=== PATIENT | male | born 1990 | race Caucasian/White ===

== ENCOUNTER 2017-12-21 03:29 | Emergency (ER) | payer BC, SELFPAY ==
[2017-12-21 03:31] VITALS: BP 151/90; PULSE 85; RESP 20; TEMP 36.7; O2SAT 100
--- NOTE | 2017-12-21 03:56 | W.ED.GENAD ---
Discharge Plan Disposition Patient Disposition: HOME Condition: Stable Discharge Details Chief Complaint: Nk/Back Pain Clinical Impression: Acute exacerbation of chronic low back pain Primary Care Provider: RUDDY BURLESON ED Provider: Diann Murillo Home Meds and New Rx's Prescriptions: Continue ibuprofen 600 MG tablet 600 mg PO QID PRN (Reason: Pain) Qty: 20 RF: 0 tramadol 50 mg Tablet 50 mg PO PRN PRNRF: 0 Discharge Instructions Instructions: Low Back Strain (ED) Additional Instructions: Alternate ice and heat to the affected area several times daily for 20 minutes at a time. Alternate Tylenol and Motrin as needed and directed for pain. Take the Valium as needed and directed for pain not relieved with Tylenol Motrin and to help you with sleep. Call your primary care doctor tomorrow to schedule follow-up appointment for reevaluation. Return immediately to the emergency department any worsening or new concerning symptoms. Stand Alone Forms: Work Release Discharge Data Discharge Physician: Diann Murillo Medical Decision Making 27yo M w/ a h/o chronic lower back pain since injury in 2009 who presents with acute on chronic worsening for the past few days. Denies new injury. Admits to occasional radiation of pain down from left lower back into left lateral thigh down to the knee. No other cauda equina symptoms. No fever or urinary symptoms. Blood pressure mildly elevated otherwise vitals within normal limits. Patient drove himself to the ED and ambulated back to room and appears mildly uncomfortable and stiff while walking. Tenderness to palpation across lower back but no evidence of trauma or infection. No focal deficits. Abdomen soft and nontender. Neurovascularly intact. Patient drove himself to ED. He was requesting a work note. He declines a dose of Toradol, Motrin or Tylenol here. Patient states he is having trouble sleeping. Will send home with 3 doses of Valium to help with muscle spasm and sleep. He is instructed to follow-up with his primary care doctor for reevaluation and return here if worse. HPI General Mode of arrival: ambulatory. Date/Time Provider Initiated Documentation: 12/21/17 03:40. Limitations to Documentation: no limitations. Information obtained by: patient. HPI Narrative: Pt is a 27yo M w/ a h/o chronic back pain since an [facility] who presents with an acute worsening over the past few days. Patient denies any new injury but states from time to time he has an exacerbation of his chronic back pain. States the pain feels like his usual acute exacerbation. States the pain is aching and across his lower back and feels like a spasm. States he has not been able to sleep for the past 2 nights due to the pain. States he occasionally has pain that radiates from his left back down the side of his left leg into the knee. Denies any lower leg pain. Denies fever, abdominal pain, urinary or fecal incontinence, leg pain or weakness, or saddle anesthesia. States he has been taking ibuprofen and Tylenol for pain without relief. States he has tramadol to take at home but does not like to take this because it makes him sleepy at work. States his last dose of Motrin was midnight and his last dose of Tylenol was yesterday afternoon. Patient drove himself to the ED. Past medical history: Chronic back pain Surgical history: None Social history: Occasional alcohol, denies tobacco or drugs Meds: Motrin and tylenol prn, tramadol as needed Allergies: NKDA PCP: Related Data Home Medications Medication Instructions Recorded Confirmed ibuprofen 600 mg PO QID PRN #20 tablet 05/04/17 12/21/17 tramadol 50 mg PO PRN PRN 12/21/17 12/21/17 Previous Rx's Medication Instructions Recorded ibuprofen 600 mg PO QID PRN #20 tablet 05/04/17 Allergies Allergy/AdvReac Type Severity Reaction Status Date / Time No Known Allergies Allergy Unverified 12/21/17 03:34 General Stated Complaint: Nk/Back Pain LICHA: 3 Review of Systems Review of Systems All systems reviewed & are unremarkable except as noted in HPI and below Constitutional Reports as per HPI, Denies chills and Denies fever(s) Eyes Denies blurry vision ENT Denies dizziness, Denies sore throat and Denies throat swelling Cardiovascular Denies chest pain and Denies dyspnea Respiratory Denies dyspnea Gastrointestinal Denies abdominal pain, Denies diarrhea and Denies vomiting Genitourinary Denies hematuria and Denies dysuria Musculoskeletal Reports back pain and Denies numbness Integumentary/Breasts Denies lesions and Denies rash Neurologic Denies dizziness and Denies numbness Allergic/Immunologic Denies throat swelling PFSH Social History Smoking/Tobacco Use Status: Never Exam Const General: cooperative, healthy appearing and no acute distress HENMT Head: normal to inspection Mouth: oral mucosae normal Eyes General: appearance normal, both eyes and all related structures Neck Neck: normal visual inspection Resp Effort & Inspection: normal respiratory effort and able to speak in complete sentences Auscultation: clear to auscultation bilaterally Cardio Rate: regular rate Rhythm: regular rhythm GI Inspection: normal to inspection Palpation: soft, no masses, not rigid and nontender Auscultation: normal bowel sounds Male General Exam: Yes normal external exam Scrotum: scrotum normal Back/Spine/Pelvis Back: No erythema and No warmth Thoracic/Lumbar Spine: paraspinal tenderness (Bilateral lumbar) and lumbar spinal tenderness Pelvis: no buttock tenderness and no buttock swelling Sacrum: no ecchymosis, no erythema and no swelling Skin General skin exam: no rashes or lesions noted Neuro General: alert, awake and oriented x3 Motor: muscle tone normal throughout and strength 5/5 throughout DTR's: Rt Patellar: 1+, Lt Patellar: 1+, Rt Ankle: 1+ and Lt Ankle: 1+ Plantar Reflexes: Equivocal: bilateral Other: Straight leg raise negative bilaterally Extrem General: normal to inspection and full ROM Left lower extremity: normal to inspection and full ROM Other: Bilateral DP/PT pulses intact. Psych Appearance: grossly normal Affect: normal affect Course Vital Signs Temperature 98.1 F 12/21/17 03:31 Pulse 85 12/21/17 03:31 Respiratory Rate 20 12/21/17 03:31 Blood Pressure 151/90 H 12/21/17 03:31 Pulse Oximetry 100 12/21/17 03:31 Temperature 98.1 F 12/21/17 03:31 Temperature Source Temporal Artery Scan 12/21/17 03:31 Pulse 85 12/21/17 03:31 Respiratory Rate 20 12/21/17 03:31 Respiratory Effort Non-Labored 12/21/17 03:31 Blood Pressure 151/90 H 12/21/17 03:31 Pulse Oximetry 100 12/21/17 03:31 Oxygen Delivery Method Room Air 12/21/17 03:31 Oxygen Flow Rate 0 12/21/17 03:31 Pain Level 5 12/21/17 03:35
== END 2017-12-21 04:00 | disposition home or self-care (01) ==
PROVIDERS: Emergency Provider Physician Assistant; PCP Internal Medicine
DX: M54.5 Low back pain (principal); G89.29 Other chronic pain
CPT/HCPCS: 99283

== ENCOUNTER 2018-03-03 21:07 | Emergency (ER) | payer BC, SELFPAY ==
[2018-03-03 21:12] VITALS: BP 129/86; PULSE 74; RESP 16; TEMP 36.5; O2SAT 98
--- NOTE | 2018-03-03 21:18 | W.ED.GENAD ---
Discharge Plan Disposition Patient Disposition: HOME Condition: Improving Discharge Details Chief Complaint: Nk/Back Pain Clinical Impression: Back strain Primary Care Provider: Que Martinez ED Provider: Bryson Bolden Home Meds and New Rx's Prescriptions: Continued ibuprofen 600 MG tablet 600 mg PO QID PRN (Reason: Pain) Qty: 20 RF: 0 tramadol 50 mg Tablet 50 mg PO PRN PRNRF: 0 Discharge Instructions Instructions: Lower Back Exercises (ED) Additional Instructions: Continue your stretching, hydration, prescribed medications. Return for any acute concerns Stand Alone Forms: Work Release Medical Decision Making 27-year-old healthy male with mild lumbar back strain that he is managed with NSAIDs at home. He had to call out of work and requests a work note. He has no neurologic dysfunction his exam is unremarkable as are his vital signs. Consistent with lumbar strain and patient appropriate for discharge home. HPI General Mode of arrival: ambulatory. Date/Time Provider Initiated Documentation: 03/03/18 21:11. Limitations to Documentation: no limitations. Information obtained by: patient. History of Present Illness 27 year old M presents to the emergency department with the chief complaint of Back strain and need for calling out, described as moderate, Quality is described as aching, and is localized to the back. Patient reports no radiation. Patient started experiencing this hour(s) and it has been constant. Rest improves symptom(s), Movement worsens symptoms . Patient notes no other symptoms.. Patient did receive the following treatments prior to arrival, NSAID Related Data Home Medications Medication Instructions Recorded Confirmed ibuprofen 600 mg PO QID PRN #20 tablet 05/04/17 03/03/18 tramadol 50 mg PO PRN PRN 12/21/17 03/03/18 Previous Rx's Medication Instructions Recorded ibuprofen 600 mg PO QID PRN #20 tablet 05/04/17 Allergies Allergy/AdvReac Type Severity Reaction Status Date / Time No Known Allergies Allergy Unverified 12/21/17 03:34 General Stated Complaint: Nk/Back Pain LICHA: 3 Review of Systems Review of Systems 6 systems reviewed and otherwise negative [facility] Social History Smoking/Tobacco Use Status: Never Exam Narrative Exam Narrative: GEN: awake, alert, oriented 3. Pleasant, well groomed, interactive. HEAD: Normocephalic, atraumatic ENT: Mucous membranes moist, oropharynx unremarkable, External ear exam unremarkable EYES: PERRL, EOMI NECK: Full ROM, no FAIZAN, no menigismus CHEST/RESP: Nontender, clear to auscultation bilateral, no wheeze/rhonchi/rales CARDIOVASCULAR: RRR, no murmur, rub danika. 2+ Rad pulse bilateral Back: Bilateral paraspinous muscular spasm and tenderness in the thoracolumbar region. No midline tenderness, step-off, deformity EXT: Full ROM, no edema, no rash Neuro: Grossly normal neurologic exam, conversant, interactive. Psych: Speech fluent, thoughts congruent, affect normal Course Vital Signs Temperature 36.5 C 03/03/18 21:12 Pulse 74 03/03/18 21:12 Respiratory Rate 16 03/03/18 21:12 Blood Pressure 129/86 03/03/18 21:12 Pulse Oximetry 98 03/03/18 21:12 Temperature 36.5 C 03/03/18 21:12 Temperature Source Tympanic 03/03/18 21:12 Pulse 74 03/03/18 21:12 Respiratory Rate 16 03/03/18 21:12 Respiratory Effort 03/03/18 21:12 Blood Pressure 129/86 03/03/18 21:12 Blood Pressure Position Sitting 03/03/18 21:12 Pulse Oximetry 98 03/03/18 21:12 Oxygen Delivery Method Room Air 03/03/18 21:12 Oxygen Flow Rate 0 03/03/18 21:12 Pain Level 4 03/03/18 21:12
[2018-03-03 22:14] VITALS: BP 189/94
== END 2018-03-03 21:25 | disposition home or self-care (01) ==
LOC: ER 21:27
PROVIDERS: Emergency Provider Emergency Medicine; PCP Internal Medicine
DX: S39.012A Strain of muscle, fascia and tendon of lower back, initial encounter (principal); X50.9XXA Other and unspecified overexertion or strenuous movements or postures, initial encounter
CPT/HCPCS: 99282

== ENCOUNTER 2018-03-18 07:13 | Emergency (ER) | payer BC, SELFPAY ==
[2018-03-18 07:20] VITALS: BP 124/94; PULSE 86; RESP 16; TEMP 37; O2SAT 97
[2018-03-18 07:31] LABS: Bilirubin Negative (Negative); Blood Negative (Negative); Clarity Clear; Glucose Negative (Negative); Ketones Negative (Negative); Leukocyte Esterase Negative (Negative); Nitrite Negative (Negative); Urobilinogen 0.2 EU/dL (Up TO 0.2); pH 6.5 (5-8)
--- NOTE | 2018-03-18 07:38 | W.ED.GENAD ---
Discharge Plan Disposition Patient Disposition: HOME Condition: Stable Discharge Details Chief Complaint: Urinary Clinical Impression: Pain in testicle, Varicocele Primary Care Provider: Que Martinez ED Provider: Augusta Nolasco Home Meds and New Rx's Prescriptions: Continued tramadol 50 mg Tablet 50 mg PO PRN PRNRF: 0 betamethasone valerate 0.1 % Cream 1 applic TOPICAL DAILY PRNRF: 0 ibuprofen [Ibuprofen IB] 200 mg Tablet 600 mg PO QID PRNRF: 0 Discharge Instructions Additional Instructions: Please return immediately to the emergency department if you develop any new or worsening symptoms or if you become otherwise concerned. It is extremely important that you make an appointment to be seen by your primary care doctor as soon as possible and follow-up for this visit. Referrals: Que Martinez [Primary Care Provider] - Discharge Data Discharge Date/Time-TO BE ENTERED AT DEPARTURE: 03/18/18 10:11 Medical Decision Making David Ca is a 28-year-old man with history of lower back pain over the past 10 years presenting to the emergency department with testicular pain for the past 4 days. On exam patient is very well and nontoxic appearing. Tenderness of the left testicle was otherwise normal exam of the genitals, benign abdominal exam. Unclear etiology of the pain, low suspicion for orchitis, trauma, or other acute emergent life-threatening testicular process but will obtain ultrasound and UA for rule out. Exam/history is not consistent with acute aortic process, kidney stone, acute emergent intra-abdominal etiology, sepsis. Her sound shows left-sided varicocele otherwise negative per radiology. UA negative. Pain likely secondary to varicocele. I had a lengthy discussion with the patient regarding return to emergency department precautions and importance of outpatient follow-up with his primary care doctor. Patient verbalizes understanding of the plan and is amenable. Medical Records Medical records reviewed: Yes I reviewed the patient's medical records. Lab Data Lab results reviewed: Yes I reviewed the patient's lab results. Laboratory Tests Range/Units 03/18/18 07:25 Urine Color (Yellow) Yellow Urine Clarity Clear Urine pH (5-8) 6.5 Ur Specific [place] (1.005-1.025) 1.020 Urine Protein (Negative) mg/dL Negative Urine Ketones (Negative) mg/dL Negative Urine Blood (Negative) Negative Urine Nitrite (Negative) Negative Urine Bilirubin (Negative) Negative Urine Urobilinogen (Up TO 0.2) EU/dL 0.2 Ur Leukocyte Esterase (Negative) Negative Urine Glucose (Negative) mg/dL Negative HPI General Mode of arrival: ambulatory. Date/Time Provider Initiated Documentation: 03/18/18 07:38. Limitations to Documentation: no limitations. Information obtained by: patient, RN notes reviewed and old records reviewed. HPI Narrative: David Ca 28-year-old man with history of recurrent low back pain over the past 10 years presenting to the emergency department with testicular pain. Patient reports that 4 days ago he developed his typical left-sided low back pain with radiation into the left leg. He takes tramadol for this at home, which he did and has had relief of the past few days. He reports that with onset of his low back pain, he also noticed that pain is radiating into the left testicle. This has happened occasionally in the past, but pain has only lasted briefly. Patient reports that with this instance his testicular pain has persisted over the past few days, despite resolution of his back pain. He has not had rash, scrotal edema, trauma to the scrotum or back, any other pain, dysuria, penile discharge, vomiting, diarrhea, or any other symptoms. Has been eating and drinking as usual. Patient is monogamous with his . Related Data Home Medications Medication Instructions Recorded Confirmed tramadol 50 mg PO PRN PRN 12/21/17 03/18/18 betamethasone valerate 1 applic TOPICAL DAILY PRN 03/18/18 03/18/18 ibuprofen [Ibuprofen IB] 600 mg PO QID PRN 03/18/18 03/18/18 Allergies Allergy/AdvReac Type Severity Reaction Status Date / Time No Known Allergies Allergy Unverified 03/18/18 07:26 General Stated Complaint: Urinary LICHA: 3 Review of Systems Review of Systems Constitutional: denies fevers Eyes: denies eye pain ENT: denies facial pain, dental pain, sore throat Cardiovascular: denies chest pain, edema Respiratory: denies SOB, cough GI: denies abdominal pain, vomiting, diarrhea : denies flank pain, penile discharge, dysuria, reports left testicular pain MSK: denies back pain, neck pain, arthralgias, myalgias Skin: denies rash Neuro: denies headaches, numbness, weakness [facility] Social History Smoking and Tabacco status: Never Exam Narrative Exam Narrative: Constitutional: well and [id number], pleasant, conversing normally HENT: head atraumatic, normocephalic normal inspection, mucous membranes moist Eyes: conjunctiva normal, sclera normal, pupils 3mm b/l Neck: no stridor, normal ROM, trachea midline Chest: normal inspection Resp: normal work of breathing, LCTAB Cardio: normal rate, normal rhythm, no murmur appreciated GI: abdomen soft, non-tender, non-distended : No inguinal lymphadenopathy bilaterally, no rash or skin lesion over the genitals, normal penis, no scrotal edema, mild tenderness of the left testicle without mass or firmness, mild left varicocele Back: normal inspection, no rash, nontender to palpation Skin: warm, dry, normal color, no rash Neuro: alert, not altered, grossly non-focal, normal tone Ext: no edema Psych: normal mood, normal affect, normal behavior Course Vital Signs Temperature 37 C 03/18/18 07:20 Pulse 86 03/18/18 07:20 Respiratory Rate 16 03/18/18 07:20 Blood Pressure 124/94 H 03/18/18 07:20 Pulse Oximetry 97 03/18/18 07:20 Temperature 37 C 03/18/18 07:20 Temperature Source Temporal Artery Scan 03/18/18 07:20 Pulse 86 03/18/18 07:20 Respiratory Rate 16 03/18/18 07:20 Respiratory Effort Non-Labored 03/18/18 07:24 Blood Pressure 124/94 H 03/18/18 07:20 Blood Pressure Position Sitting 03/18/18 07:20 Pulse Oximetry 97 03/18/18 07:20 Oxygen Delivery Method Room Air 03/18/18 07:20 Oxygen Flow Rate 0 03/18/18 07:20 Pain Level 3 03/18/18 07:31 Lab/Test Results Lab/Test Results: Laboratory Tests Range/Units 03/18/18 07:25 Urine Color (Yellow) Yellow Urine Clarity Clear Urine pH (5-8) 6.5 Ur Specific [place] (1.005-1.025) 1.020 Urine Protein (Negative) mg/dL Negative Urine Ketones (Negative) mg/dL Negative Urine Blood (Negative) Negative Urine Nitrite (Negative) Negative Urine Bilirubin (Negative) Negative Urine Urobilinogen (Up TO 0.2) EU/dL 0.2 Ur Leukocyte Esterase (Negative) Negative Urine Glucose (Negative) mg/dL Negative
--- NOTE | 2018-03-18 07:41 | ED.GENADUL_ITS ---
Discharge Plan Disposition Patient Disposition: HOME Condition: Stable Discharge Details Chief Complaint: Urinary Clinical Impression: Pain in testicle, Varicocele Primary Care Provider: Que Martinez ED Provider: Augusta Nolasco Home Meds and New Rx's Prescriptions: Continued tramadol 50 mg Tablet 50 mg PO PRN PRNRF: 0 betamethasone valerate 0.1 % Cream 1 applic TOPICAL DAILY PRNRF: 0 ibuprofen [Ibuprofen IB] 200 mg Tablet 600 mg PO QID PRNRF: 0 Discharge Instructions Additional Instructions: Please return immediately to the emergency department if you develop any new or worsening symptoms or if you become otherwise concerned. It is extremely important that you make an appointment to be seen by your primary care doctor as soon as possible and follow-up for this visit. Referrals: Que Martinez [Primary Care Provider] - Discharge Data Discharge Date/Time-TO BE ENTERED AT DEPARTURE: 03/18/18 10:11 Medical Decision Making David Ca is a 28-year-old man with history of lower back pain over the past 10 years presenting to the emergency department with testicular pain for the past 4 days. On exam patient is very well and nontoxic appearing. Tenderness of the left testicle was otherwise normal exam of the genitals, benign abdominal exam. Unclear etiology of the pain, low suspicion for orchitis, trauma, or other acute emergent life-threatening testicular process but will obtain ultras ound and UA for rule out. Exam/history is not consistent with acute aortic process, kidney stone, acute emergent intra-abdominal etiology, sepsis. Her sound shows left-sided varicocele otherwise negative per radiology. UA negative. Pain likely secondary to varicocele. I had a lengthy discussion with the patient regarding return to emergency department precautions and importance of outpatient follow-up with his primary care doctor. Patient verbalizes understanding of the plan and is amenable. Medical Records Medical records reviewed: Yes I reviewed the patient's medical records. Lab Data Lab results reviewed: Yes I reviewed the patient's lab results. Laboratory Tests Range/Units 03/18/18 07:25 Urine Color (Yellow) Yellow Urine Clarity Clear Urine pH (5-8) 6.5 Ur Specific [place] (1.005-1.025) 1.020 Urine Protein (Negative) mg/dL Negative Urine Ketones (Negative) mg/dL Negative Urine Blood (Negative) Negative Urine Nitrite (Negative) Negative Urine Bilirubin (Negative) Negative Urine Urobilinogen (Up TO 0.2) EU/dL 0.2 Ur Leukocyte Esterase (Negative) Negative Urine Glucose (Negative) mg/dL Negative HPI General Mode of arrival: ambulatory . Date/Time Provider Initiated Documentation: 03/18/18 07:38 . Limitations to Documentation: no limitations . Information obtained by: patient, RN notes reviewed and old records reviewed . HPI Narrative: David Ca 28-year-old man with history of recurrent low back pain over the past 10 years presenting to the emergency department with testicular pain. Patient reports that 4 days ago he developed his typical left- sided low back pain with radiation into the left leg. He takes tramadol for this at home, which he did and has had relief of the past few days. He reports that with onset of his low back pain, he also noticed that pain is radiating into the left testicle. This has happened occasionally in the past, but pain has only lasted briefly. Patient reports that with this instance his testicular pain has persisted over the past few days, despite resolution of his back pain. He has not had rash, scrotal edema, trauma to the scrotum or back, any other pain, dysuria, penile discharge, vomiting, diarrhea, or any other symptoms. Has been eating and drinking as usual. Patient is monogamous with his . Re lated Data Home Medications Medication Instructions Recorded Confirmed tramadol 50 mg PO PRN PRN 12/21/17 03/18/18 betamethasone valerate 1 applic TOPICAL DAILY PRN 03/18/18 03/18/18 ibuprofen [Ibuprofen IB] 600 mg PO QID PRN 03/18/18 03/18/18 Allergies Allergy/AdvReac Type Severity Reaction Status Date / Time No Known Allergies Allergy Unverified 03/18/18 07:26 General Stated Complaint: Urinary LICHA: 3 Review of Systems Review of Systems Constitutional: denies fevers Eyes: denies eye pain ENT: denies facial pain, dental pain, sore throat Cardiovascular: denies chest pain, edema Respiratory: denies SOB, cough GI: denies abdominal pain, vomiting, diarrhea : denies flank pain, penile discharge, dysuria, reports left testicular pain MSK: denies back pain, neck pain, arthralgias, myalgias Skin: denies rash Neuro: denies headaches, numbness, weakness [facility] Social History Smoking and Tabacco status: Never Exam Narrative Exam Narrative: Constitutional: well and [id number], pleasant, conversing normally HENT: head atraumatic, normocephalic normal inspection, mucous membranes moist Eyes: conjunctiva normal, sclera normal, pupils 3mm b/l Neck: no stridor, normal ROM, trachea midline Chest: normal inspection Resp: normal work of breathing, LCTAB Cardio: normal rate, normal rhythm, no murmur appreciated GI: abdomen soft, non-tender, non-distended : No inguinal lymphadenopathy bilaterally, no rash or skin lesion over the genitals, normal penis, no scrotal edema, mild tenderness of the left testicle without mass or firmness, mild left varicocele Back: normal inspection, no rash, nontender to palpation Skin: warm, dry, normal color, no rash Neuro: alert, not altered, grossly non-focal, normal tone Ext: no edema Psych: normal mood, normal affect, normal behavior Course Vital Signs Temperature 37 C 03/18/18 07:20 Pulse 86 03/18/18 07:20 Respiratory Rate 16 03/18/18 07:20 Blood Pressure 124/94 H 03/18/18 07:20 Pulse Oximetry 97 03/18/18 07:20 Temperature 37 C 03/18/18 07:20 Temperature Source Temporal Artery Scan 03/18/18 07:20 Pulse 86 03/18/18 07:20 Respiratory Rate 16 03/18/18 07:20 Respiratory Effort Non-Labored 03/18/18 07:24 Blood Pressure 124/94 H 03/18/18 07:20 Blood Pressure Position Sitting 03/18/18 07:20 Pulse Oximetry 97 03/18/18 07:20 Oxygen Delivery Method Room Air 03/18/18 07:20 Oxygen Flow Rate 0 03/18/18 07:20 Pain Level 3 03/18/18 07:31 Lab/Test Results Lab/Test Results: Laboratory Tests Range/Units 03/18/18 07:25 Urine Color (Yellow) Yellow Urine Clarity Clear Urine pH (5-8) 6.5 Ur Specific [place] (1.005-1.025) 1.020 Urine Protein (Negative) mg/dL Negative Urine Ketones (Negative) mg/dL Negative Urine Blood (Negative) Negative Urine Nitrite (Negative) Negative Urine Bilirubin (Negative) Negative Urine Urobilinogen (Up TO 0.2) EU/dL 0.2 Ur Leukocyte Esterase (Negative) Negative Urine Glucose (Negative) mg/dL Negative
--- NOTE | 2018-03-18 08:51 | DI.US_ITS ---
SYMPTOM/DIAGNOSIS: LEFT TESTICULAR PAIN, NO TRAUMA TESTICULAR ULTRASOUND: The testicles are normal in size and show normal blood flow. No mass is identified. There is no evidence of torsion. The epididymides are unremarkable with the exception of a 2 mm cyst in the head of the right epididymis. A varicocele is seen at the inferior and lateral aspect of the left testicle with increasing blood flow with jhon javier. IMPRESSION: Left varicocele.
== END 2018-03-18 10:11 | disposition home or self-care (01) ==
PROVIDERS: Emergency Provider Student in an Organized Health Care Education/Training Program; PCP Internal Medicine
DX: I86.1 Scrotal varices (principal)
CPT/HCPCS: 99284; 76870; 81003

== ENCOUNTER 2019-02-19 20:43 | Emergency (ER) | payer BC, SELFPAY ==
[2019-02-19 20:51] VITALS: BP 129/91; PULSE 81; RESP 16; TEMP 36.5; O2SAT 100
[2019-02-19] MEDS: Normal Saline 1,000 ML 1000 ML IV (21:10)
[2019-02-19] MEDS: Acetaminophen 500 MG TAB 1000 MG PO (21:10)
[2019-02-19] MEDS: methylPREDNISolone SUCC 125 MG VIAL IVP (21:15)
--- NOTE | 2019-02-19 21:17 | W.ED.GENAD ---
Discharge Plan Disposition Patient Disposition: HOME Condition: Good Discharge Details Chief Complaint: Headache Clinical Impression: Headache, migraine Primary Care Provider: Que Martinez ED Provider: Atul Alexis Home Meds and New Rx's Prescriptions: No Action acetaminophen [Tylenol Extra Strength] 500 mg Tablet 500 mg PO QID PRNRF: 0 tramadol 50 mg Tablet 50 mg PO PRN PRNRF: 0 ibuprofen [Ibuprofen IB] 200 mg Tablet 400 mg PO QID PRNRF: 0 Discharge Instructions Instructions: Acute Headache (ED) Additional Instructions: At this time your symptoms appear consistent with a migraine headache. Please drink plenty of fluids, take Tylenol or Motrin as needed for pain. Avoid meat with preservatives. Be cautious with your caffeine intake. If you notice any worsening of your symptoms, or any new symptoms such as vomiting, diarrhea, fever, chills, shortness of breath, chest pain, numbness, weakness, or fainting , please return immediately to the emergency department for reevaluation. Please follow up with your primary care provider as soon as possible for reassessment and reevaluation. As always, it was a pleasure participating in your medical care today. Stand Alone Forms: Work Release Referrals: Que Martinez [Primary Care Provider] - Medical Decision Making This is a pleasant 28-year-old male past medical history of chronic back pain, and migraine headaches who presents today for headache. Is been present for the last 5 days. Went to an urgent care where he had treatment with Toradol and Phenergan which slightly improved his symptoms but did not resolve them. He has no red flags for his clinical history. Physical exam finding demonstrates normal neurologic exam, no focal neurologic deficits, no clinical evidence of meningitis. Signs and symptoms appear consistent with chronic migraine. However the patient has not had any intracranial imaging before. We will get a CT scan, give migraine cocktail and reassess. 10:[address] scan results have returned negative for any acute process. Signs and symptoms continue to appear consistent with migraine. Upon reassessment he has near complete resolution of his symptoms and is requesting to go home. Repeat neurologic exam continues to demonstrate no focal neurologic deficits or meningeal signs. This time I feel that his symptoms are clinically consistent with migraine he is stable for discharge with close PCP follow-up. Discussed red flags which to return. I have extensively reviewed the treatment plan and discharge instructions with the patient and their family. I have addressed all patient concerns at this time. The patient and family was made aware of what symptoms to monitor for that would warrant a return to the emergency department. Discussed the plan with the patient and family, they demonstrate verbal understanding and agreement with our assessment and plan at this time. FINDINGS: Brain: Normal. No hemorrhage. Unremarkable white matter. No mass effect. Ventricles: Normal. No ventriculomegaly. Bones/joints: Unremarkable. No acute fracture. Sinuses: Multiple opacified ethmoid air cells. Sub cm cyst or polyp in left sphenoid sinus. No fluid levels. Mastoid air cells: Visualized mastoid air cells are well aerated. Soft tissues: Unremarkable. IMPRESSION: 1. No acute intracranial abnormality. 2. Sinusitis. Thank you for allowing us to participate in the care of your patient. Dictated and Authenticated by: Khris Leiva DO 02/19/2019 9:53 PM Eastern Time ([place] & [place]) HPI General Date/Time Provider Initiated Documentation: 02/19/19 20:44. HPI Narrative: This is a very pleasant 28-year-old male with a past medical history of chronic back pain, depression, who presents today for evaluation of headache. Patient states that he has a family history of migraines, and has had migraine headaches in the past. This 1 started 5 days ago was present on the left-hand side of his jew, he describes it as a vice-like sensation. Went to an urgent care last 48 hours where he received Phenergan and Toradol, which had mild improvement of his symptoms but did not resolve it. Since then the symptoms have come back. It is now throughout his entire head. He denies any neck pain or neck stiffness, he denies fever chills. The patient denies any headache red flags of worst headache of life, thunderclap headache, neck pain, fever, chills, concerning family history of polycystic kidney disease, Marfan syndrome, Miguelito-Danlos syndrome, abdominal aortic aneurysm, aortic dissection, or intracranial aneurysm. He states that it is consistent with prior headaches. He has not had cranial imaging in the past. Symptoms are made worse with noise and smell. He does have minimal subjective left hand tingling, which she is uncertain if it is related to the headache. He denies any other complaints at this time. No trauma, no IV or illicit drug use, or other complaints. Related Data Home Medications Medication Instructions Recorded Confirmed tramadol 50 mg PO PRN PRN 12/21/17 02/19/19 ibuprofen [Ibuprofen IB] 400 mg PO QID PRN 03/18/18 02/19/19 acetaminophen [Tylenol Extra 500 mg PO QID PRN 02/19/19 02/19/19 Strength] Allergies Allergy/AdvReac Type Severity Reaction Status Date / Time No Known Allergies Allergy Unverified 02/19/19 20:58 General Stated Complaint: Headache LICHA: 3 Review of Systems All systems reviewed & are unremarkable except as noted in HPI and below PFSH Social History Smoking/Tobacco Use Status: Never Drug use: Never Do you feel safe in your relationship?: Yes Exam Narrative Exam Narrative: 1.Const: Well-nourished, Well-developed, appearing stated age 2.Eyes: PERRL, no conjunctival injection, and symmetrical lids. 3.ENT: Atraumatic external nose and ears. Moist MM. Neck: Symmetric, trachea midline, No thyromegaly. Patient demonstrates good movement of cervical neck. There is no nuchal rigidity, no nuchal tenderness. Patient is able to flex the neck without any difficulty or significant pain. Negative Kernig's and Brudzinski sign. 4.CVS: +S1/S2, No murmurs or gallops. Peripheral pulses 2+ and equal in all extremities. Brisk capillary refill in all extremities. 5.RESP: Unlabored respiratory effort. Clear to auscultation bilaterally. No wheezes rales or rhonchi 6.GI: Soft, Nontender/Nondistended, No hepatosplenomegaly. No guarding or rebound. 7.MSK: Normocephalic/Atraumatic, Extremities w/o deformity or ttp No cyanosis or clubbing, Normal movement of all extremities 8.Skin: Warm, Dry. No rashes or lesions. 9.Neuro: project manager entertainment and media II-XII grossly intact. Sensation grossly intact, no focal neurologic deficits. All 6 cardinal planes of vision are fully intact. No evidence of rotatory or vertical nystagmus. The patient demonstrated a normal [id number], good dexterity. There was no evidence of dysdiadochokinesia. Patient was able to ambulate without difficulty. There was no wide-based gait. Romberg testing was normal. Uzrx-su-[id number] testing was normal. Sensation was intact bilaterally as well as muscle strength bilaterally for all extremities. Patient was able to verbalize butter cup with no slurring, or miss pronunciation. Cerebellar function testing is normal. The patient demonstrates a normal hints exam with no findings concerning for a central event. No vertical nystagmus. The head impulse test is negative for any significant central abnormality. Normal test of skew. No suggestion of a central cerebellar event. 10.Psych: (AAO) x3. Appropriate mood and affect Course Vital Signs Vital signs: Vital Signs Temperature 36.5 C 02/19/19 20:51 Pulse 81 02/19/19 20:51 Respiratory Rate 16 02/19/19 20:51 Blood Pressure 129/91 H 02/19/19 20:51 Pulse Oximetry 100 02/19/19 20:51 Temperature 36.5 C 02/19/19 20:51 Temperature Source Skin 02/19/19 20:51 Pulse 81 02/19/19 20:51 Respiratory Rate 16 02/19/19 20:51 Respiratory Effort 02/19/19 20:57 Blood Pressure 129/91 H 02/19/19 20:51 Pulse Oximetry 100 02/19/19 20:51 Oxygen Delivery Method Room Air 02/19/19 20:51 Oxygen Flow Rate 0 02/19/19 20:51 Pain Level 7 02/19/19 20:51
[2019-02-19] MEDS: Ketorolac 30 MG/ML VIAL IVP (21:18)
[2019-02-19] MEDS: diphenhydrAMINE 50 MG/ML VIAL 25 MG IVP (21:20)
[2019-02-19] MEDS: Prochlorperazine 10 MG/2 ML VIAL IVP (21:22)
[2019-02-19] MEDS: Normal Saline 50 ML (21:22)
--- NOTE | 2019-02-19 21:45 | DI.CT_ITS ---
EXAM: CT HEAD WO CLINICAL HISTORY: headache, r/o mass TECHNIQUE: Noncontrast cranial CT was performed. COMPARISON: No exams were available for comparison FINDINGS: There is mucoperiosteal thickening of a few ethmoid air cells which may represent a mild chronic si nusitis. Otherwise the paranasal sinuses and mastoid air cells are clear. Orbital and temporal bone structures appear intact. No abnormality of the ventricular system. No evidence of intracranial he morrhage, midline shift, or mass effect. IMPRESSION: No evidence of acute intracranial abnormality. Mild ethmoid sinusitis.
--- NOTE | 2019-02-19 21:53 | DI.VRAD_ITS ---
PROCEDURE INFORMATION: Exam: CT Head Without Contrast Exam date and time: 02/19/2019 9:40 PM Age: 28 years old Clinical indication: Pain; Headache not specified; Patient HX: Headache, R/O tumor; Additional info: Headache x6 days, recently seen at an urgent care facility for treatment, improved for a day and then the headache came back. TECHNIQUE: Imaging protocol: Computed tomography of the head without contrast. Radiation optimization: All CT scans at this facility use at least one of these dose optimization techniques: automated exposure control; mA and/or kV adjustment per patient size (includes targeted exams where dose is matched to clinical indication); or iterative reconstruction. COMPARISON: No relevant prior studies available. FINDINGS: Brain: Normal. No hemorrhage. Unremarkable white matter. No mass effect. Ventricles: Normal. No ventriculomegaly. Bones/joints: Unremarkable. No acute fracture. Sinuses: Multiple opacified ethmoid air cells. Sub cm cyst or polyp in left sphenoid sinus. No fluid levels. Mastoid air cells: Visualized mastoid air cells are well aerated. Soft tissues: Unremarkable. IMPRESSION: 1. No acute intracranial abnormality. 2. Sinusitis. Dictated and Authenticated by: Khris Leiva MD. Ordering:HANY Pollard MD
[2019-02-19 22:21] VITALS: BP 126/89; PULSE 74; RESP 16; O2SAT 98
== END 2019-02-19 22:20 | disposition home or self-care (01) ==
PROVIDERS: Emergency Provider Student in an Organized Health Care Education/Training Program; PCP Internal Medicine
DX: G43.909 Migraine, unspecified, not intractable, without status migrainosus (principal)
CPT/HCPCS: 96361; 96374; 96375; 99284; 70450; J0780; J1200; J1885; J2930

== ENCOUNTER 2020-02-08 21:02 | Emergency (ER) | payer OTHER, SELFPAY ==
--- NOTE | 2020-02-08 21:03 | ED.GENADUL_ITS ---
Discharge Plan Disposition Patient Disposition: HOME Condition: Stable Discharge Details Clinical Impression: Pain, rectum, Abdominal pain, Syncope Primary Care Provider: Que Martinez ED Provider: Nupur Cardenas Home Meds and New Rx's Prescriptions: New pramoxine [Proctofoam] 1 % foam 1 applic ND QID PRNQty: 15 RF: 0 Continued acetaminophen [Tylenol Extra Strength] 500 mg Tablet 500 mg PO QID PRNRF: 0 ibuprofen [Ibuprofen IB] 200 mg Tablet 400 mg PO QID PRNRF: 0 Discharge Instructions Instructions: Syncope (ED), Abdominal Pain (ED), Rectal Pain (ED) Additional Instructions: Your labs and imaging are reassuring today. I do not find any life-threatening source of your syncope at this point. This may have been associated with your discomfort. You may use the Tucks pad as needed to help with rectal discomfort. Please follow directions on packaging. Please follow-up with your primary care in 1 week for reevaluation. If you develop chest pain, shortness of breath, increased pain, fever/chills, inability to hydrate or other new/worsening symptom please seek care urgently once again. Referrals: Que Martinez [Primary Care Provider] - Medical Decision Making Patient is a pleasant 29-year-old male presenting today with complaint of abdominal pain and syncope. Symptoms discomfort in his abdomen for approximately 1 week that is worsening over the past several days. Worsened with food. Reports that he had [employer] for lunch motion to exacerbate his discomfort. States he did vomit x2 today. No hematemesis. Reports hard stools today which did pass some rectal discomfort. History of hemorrhoids. No blood in the stool. States that he has been able to pass flatus and stool normally otherwise. Reports that he has some chronic discomfort in the left testicle which is also been worse recently and finds worse with straining. History of varicocele. He denies any previous abdominal surgeries. He states that he has had abdominal discomfort like this historically but typically short-lived. Denies any back pain. No chest pain or shortness of breath. Denies fevers or chills. States that today he had 2 episodes of syncope when at rest. The initial was without any precipitating symptoms. Second included tunnel vision and lightheadedness. Both of these occurred while feeding. Not associated with straining or exertion. He states that he immediately returned to baseline and felt like he had take a nap after each episode. On exam, patient appears nontoxic. His vital signs within normal limits. Normal neurological exam. Abdomen is soft and diffusely tender with no peritoneal findings. Varicocele noted in the left testicle. Patient reports that it feels the same as it has historically. Normal cremasteric reflex. No appreciable testicular swelling, discoloration. He reports that left side is area of discomfort, the is not high riding. Rectal exam is significant for some external rectal discomfort and pain with insertion of the finger. Prostate is nontender. No grossly bloody stool. Unclear what is the driving source today. He has a multitude of complaints many of these are extremely vague. As his abdominal pain has progressed over the p ast week he is now denies any vomiting, I do feel that imaging would be appropriate. Plan for ECG and troponin to evaluate for syncope. Patient does report that he has had multiple episodes of syncope historically but typically associate with severe pain. This may have been drug riding factor today although he denies having severe pain at the onset of symptoms. Does not see any evidence to suggest testicular torsion. His exam is not consistent with prostatitis. Patient is a monogamous relationship. His just gave to child 5 weeks ago. ECG was reviewed by Dr. Alexis. No evidence to suggest openings, posttussive excitation, prolonged T, Brugada. Patient does not have a block. No evidence to suggest a STEMI. His [place] syncope rule is low risk. PERC is negative. Hypoxia evidence to suggest dissection, surgical abdomen. Consider potential electrolyte abnormality, mesenteric adenopathy, colitis versus other. Labs are reviewed. No leukocytosis. Stable H&H. CMP is without abnormality. Troponin is less than 0.05. Lipase within normal limits. TSH within normal limits. FINDINGS: Liver: Hepatic steatosis. Gallbladder and bile ducts: Normal. No calcified stones. No ductal dilation. Pancreas: Normal. No ductal dilation. Spleen: Normal. No splenomegaly. Adrenal glands: Normal. No mass. Kidneys and ureters: Simple left renal cyst, no further follow-up required. No hydronephrosis. Stomach and bowel: Unremarkable. No obstruction. No mucosal thickening. Appendix: No evidence of appendicitis. Intraperitoneal space: Unremarkable. No free air. No significant fluid collection. Vasculature: Unremarkable. No abdominal aortic aneurysm. Lymph nodes: Unremarkable. No enlarged lymph nodes. Urinary bladder: Unremarkable as visualized. Reproductive: Unremarkable as visualized. Bones/joints: Unremarkable. No acute fracture. Soft tissues: Unremarkable. IMPRESSION: No acute finding. Discussed the findings with the patient. Unclear what is causing the patient abdominal discomfort. He did discuss that this may be associate with dietary changes from the holiday. Encourage water intake. Encourage increased fiber intake. The rectal pain that began after his firm bowel movement today it seems to be his chief complaint at this time. He is requesting something to help with his rectal discomfort. I do not see any evidence of trauma, no bleeding. Will send home with Tucks pads. Will prescribe Proctofoam to cotton picker at the pharmacy is open. Return precautions were discussed. Encourage close follow-up with primary care. Patient's patient's history, could be his rectal discomfort that was causing his syncopal episode toda. Nothing any emergent source of his abdominal discomfort for his syncope. All his questions and concerns were addressed and he is in agreement this plan. This is use stool softeners discomfort. HPI General Mode of arrival: ambulatory . Date/Time Provider Initiated Documentation: 02/08/20 21:03 . Limitations to Documentation: no limitations . Information obtained by: patient and RN notes reviewed . HPI Narrative: Patient is a pleasant 29-year-old gentleman presenting today with chief complaint of abdominal pain and syncope. He reports having some abdominal discomfort that is fairly generalized for the past week, and has worsened over the past 4 days. He describes it is intermittent and worse with eating. No certain foods have been noted to exacerbate his pain. He also notes that he can just water can increase his discomfort. He states that he also has had a flareup of chronic issue with hemorrhoids and has had some rectal pain. He denies any fevers or chills. States that today he vomited twice. Denies any diarrhea. States that he did have a firm stool earlier today with no blood noted. No previous abdominal surgeries. He states that then this afternoon, he was sitting on the couch when he awoke on the floor. He states that he was found by his and is believed to have sync opized. Said that he immediately returned to baseline and felt like she had fallen asleep. States that a few hours later he had a similar event this time it was proceeded with tunnel vision and lightheadedness followed by falling to the ground again from a seated position. He states that he has syncopized historically associated with pain but did not feel that the contributed to today's events. He denies any chest pain, shortness of breath, headache, visual changes. No change in urinary habits. States that he has some chronic discomfort in the left testicle but this seems to have been exacerbated associated with abdominal discomfort. Unclear if the two are linked. Related Data Home Medications Medication Instructions Recorded Confirmed ibuprofen [Ibuprofen IB] 400 mg PO QID PRN 03/18/18 02/08/20 acetaminophen [Tylenol Extra 500 mg PO QID PRN 02/19/19 02/08/20 Strength] pramoxine [Proctofoam] 1 applic ND QID PRN #15 g 02/08/20 Previous Rx's Medication Instructions Recorded pramoxine [Proctofoam] 1 applic ND QID PRN #15 g 02/08/20 Allergies Allergy/AdvReac Type Severity Reaction Status Date / Time aspartame Allergy Headache Unverified 02/08/20 21:09 peppermint Allergy Anaphylaxsi Unverified 02/08/20 21:09 s General LICHA: 3 Review of Systems Constitutional Constitutional: Reports as per HPI, Denies chills, Denies fatigue, Denies fever(s), Denies headache(s), Denies snoring and Denies weakness Eyes Eyes: Reports as per HPI, Denies blurry vision and Denies change in vision ENT Ears, Nose, Mouth, and Throat: Denies vertigo, Denies headache(s) and Denies neck pain Cardiovascular Cardiovascular: Reports as per HPI, Denies chest pain, Denies lightheadedness, Denies radiating jaw, neck or arm pain, Denies dyspnea and Denies dyspnea on exertion Respiratory Respiratory: Reports as per HPI, Denies chest congestion, Denies cough, Denies dyspnea, Denies dyspnea on exertion, Denies snoring, Denies stridor and Denies wheezing Gastrointestinal Gastrointestinal: Reports as per HPI, Reports abdominal pain, Reports bloating, Denies hematochezia, Denies change in bowel habits, Denies nausea and Reports vomiting Genitourinary Genitourinary: Reports as per HPI, Denies dysuria, Denies flank pain, Reports testicular pain (hx of varicocele), Denies urinary incontinence and Denies urinary urgency Musculoskeletal Musculoskeletal: Reports as per HPI, Denies back pain, Denies myalgias, Denies muscle cramps, Denies neck pain and Denies numbness Integumentary/Breasts Skin/Breast: Reports as per HPI and Denies rash Neurologic Neurologic: Reports as per HPI, Denies abnormal movements, Denies abnormal speech, Denies behavioral changes, Denies confusion, Denies vertigo, Denies headache(s), Denies localized weakness, Denies numbness, Denies convulsions, Denies sensory deficit and Denies weakness Psychiatric Psychiatric: Denies behavioral changes and Denies confusion Endocrine Endocrine: Denies fatigue Allergic/Immunologic Allergic/Immunologic: Denies wheezing PFSH Social History Smoking/Tobacco Use Status: Never Smoking risk assessment performed?: Yes Alcohol Intake: current Alcohol Intake frequency: holidays/special occasions only Drug use: Never Substance use type: does not use Do you feel safe at home: Yes Do you feel safe in your relationship?: Yes Exam Const General: cooperative, healthy appearing, uncomfortable, no acute distress, well developed and well groomed Nutritional Appearance: average body habitus and well nourished Orientation: alert, awake and oriented x3 HENMT Head: normal to inspection, no palpable skull fracture, normocephalic and atraumatic Ears: hearing grossly normal bilaterally, external ears normal and TM's normal bilaterally General nose exam: external nose normal Mouth: oral mucosae normal and moist mucous membranes Throat: posterior oropharynx normal Eyes General: appearance normal, both eyes and all related structures Alignment and Position: alignment normal Periorbital: periorbital findings normal Eyelids: eyelids normal Sclera: sclerae normal Cornea: corneas normal Pupils: PERRL EOM: EOM intact bilaterally Neck Neck: normal visual inspection, full ROM, no lymphadenopathy and no meningeal signs Resp Effort & Inspection: normal respiratory effort, able to speak in complete sentences and no respiratory distress Auscultation: clear to auscultation bilaterally, no rales, no rhonchi and no wheezes Cardio Rate: regular rate Rhythm: regular rhythm Heart Sounds: S1 normal and S2 normal GI Inspection: normal to inspection and non-distended Palpation: soft, no hepatosplenomegaly, not firm, no guarding, not rigid and tender (diffuse, no peritoneal findings) Percussion: normal to percussion Auscultation: normal bowel sounds Rectal Exam: visual inspection normal, normal sphincter tone, prostate normal, No fecal impaction, No fissure, No lesions, No mass and tenderness (external anus) Back/Spine/Pelvis Back: no CVA tenderness Skin General skin exam: no rashes or lesions noted Neuro General: patient alert, patient awake and patient oriented x3 Cranial Nerves: CN's II-XI intact bilaterally Cognition: normal cognition Speech: speech normal Gait: normal gait Motor: muscle tone normal throughout, strength 5/5 throughout, no pronator drift, no movement abnormalities noted and no fasciculations Sensory Exam: no sensory deficits noted DTR's: Rt Brachioradialis: 2+, Lt Brachioradialis: 2+, Rt Patellar: 2+, Lt Patellar: 2+, Rt Ankle: 2+ and Lt Ankle: 2+ Coordination: [id number] test normal, [id number] test normal, Romberg test normal and rapid alternating movement UE normal Extrem General: normal to inspection, capillary refill normal, no pedal edema and no calf tenderness Psych Appearance: grossly normal and well kempt Mental Status: mental status grossly normal Speech and Movement: speech and movement normal
[2020-02-08 21:05] VITALS: BP 134/80; PULSE 86; RESP 16; TEMP 36.8; O2SAT 98
--- NOTE | 2020-02-08 21:15 | DI.CT_ITS ---
EXAM: CT ABDOMEN PELVIS W CLINICAL HISTORY: lower abdominal pain, vomiting and syncope. TECHNIQUE: Imaging Protocol: Axial computed tomography images with coronal and sagittal reformatted images were created and reviewed CONTRAST MATERIAL: Intravenous: Omnipaque 100cc Oral: None COMPARISON: No exams were available for comparison FINDINGS: VISUALIZED LUNG BASES: No nodules nor pleural effusions evident. ABDOMEN: There is no ascites. LIVER: Liver is diffusely hypodense implying steatosis. There is focus area of increased density in the liver just anterior to the portal vein, measuring 3 by 1.7 centimetres. This has benign appearan ce and is either relative fatty parenchymal sparing or hemangioma; less likely concerning neoplasm. GALLBLADDER/BILIARY: Gallbladder is contracted and difficult to evaluate for calculi therein. CBD is not dilated. PANCREAS: No evidence of pancreatic mass nor dilatation of the pancreatic duct. SPLEEN: Spleen size is upper normal. No intrasplenic masses evident. Splenic and portal veins are p atent. ADRENALS: There are no significant adrenal masses. KIDNEYS:There is a cyst in the superior pole of the left kidney which measures 1.8 by 1.5 centimetres . There are no other focal renal findings. No solid renal masses. No calculi nor hydronephrosis.. ABDOMINAL AORTA: Abdominal aorta is not enlarged and there is no uqjszdmbbqrjutx-[id number]-gfpocy adenopat hy. ABDOMINAL WALL/GI: No evidence of significant anterior abdominal wall hernia. No bowel obstruction. PELVIS: GI: No evidence of appendicitis.No evidence of sigmoid diverticulitis. LYMPH NODES: There is no intrapelvic nor inguinal adenopathy. REPRODUCTIVE: The prostate gland is not enlarged. Seminal vesicles appear unremarkable. URINARY BLADDER: No calculi nor obvious masses evident OSSEOUS: No significant osseous lesions. Sacroiliac joints appear unremarkable. IMPRESSION: 1. Hepatic steatosis. There is a relatively hyperdense area in the liver adjacent to the intrahepati c portal vein which measures approximately 3 x 1.7 centimetres. This is either related to focal fatt y parenchymal sparing or possibly a benign hemangioma; less likely concerning pathology. Can be furt her studied with ultrasound. 2. Gallbladder is contracted and difficult to evaluate for calculi within the gallbladder lumen. If gallstones are suspected than I recommend follow-up ultrasound. There is no obvious dilatation of th e biliary tree, both intra and extrahepatic. 3. Benign-appearing 18 x 15 millimeter cyst in the superior pole of the left kidney. No other focal renal findings. There is no hydronephrosis. 4. No ascites nor obvious lymphadenopathy evident. RADIATION DOSE DELIVERED: 1,114.51mGy.cm Total DLP DATA REPOSITORY: All CT scans at this facility are submitted to the National Radiology Data Registry (NRDR) Dose Index Registry (DIR) with the [employer] ([employer]). RADIATION OPTIMIZATION: All CT scans at this facility use at least one of these dose optimization te chniques: automated exposure control; mA and/or kV adjustment per patient size (includes targeted exa ms where dose is matched to clinical indication); or iterative reconstruction.
--- NOTE | 2020-02-08 21:15 | RT.EKG_ITS ---
APPROVED REPORT Exam: Resting ECG Patient Location: E HR:77 bpm ECG Measurements Heart Rate 77 AXIS NH 135 P 44 QRSd 89 QRS -14 QT 364 T 12 QTc 411 Conclusion Sinus rhythm...normal P axis, V-rate 60- 99 Physician: Rate 77, sinus rhythm, intervals normal, inverted T waves in V1 and lead III. No STEMI. No evidence of Brugada syndrome, epsilon wave, delta wave, or hocm. No other abnormalities.
[2020-02-08] MEDS: Normal Saline Flush 10 ML SYR IVP ×2 (21:38→22:21)
[2020-02-08] MEDS: Normal Saline 1,000 ML 1000 ML IV (21:40)
[2020-02-08 21:47] LABS: Abs Immature Grans 0.01 10^3/uL (0.0-0.06); Absolute Basophil Count 0.02 10^3/uL (0.0-0.2); Absolute Eosinophil Count 0.13 10^3/uL (0.0-0.7); Absolute Lymphocyte Count 1.23 10^3/uL (1.2-3.4); Absolute Monocyte Count 0.72 10^3/uL (0.1-0.8); Absolute Neutrophil Count 2.96 10^3/uL (1.2-6.7); Basophils % 0.4; Eosinophils % 2.6; HCT 41.8 % (40.0-50.0); HGB 14.1 g/dL (13.5-17.5); Immature Grans % 0.2; Lymphocytes % 24.3; MCH 29.9 pg (27.0-33.0); MCHC 33.7 % (32.0-36.0); MCV 88.6 fL (80-95); MPV 9.7 fL (8.0-11.0); Monocytes % 14.2; Neutrophils % 58.3; Nucleated RBC 0 %; Platelet Count 178 10^3/uL (130-400); RBC 4.72 10^6/uL (4.36-5.78); RDW 11.8 % (11.8-14.1); RDW-SD 37.5 fL; WBC 5.07 10^3/uL (4.4-10.8)
[2020-02-08 22:03] LABS: ALT 63 U/L (16-63); AST 35 U/L (15-37); Albumin 3.8 g/dL (3.4-5.0); Alkaline Phosphatase 89 U/L (46-116); BUN 14 mg/dL (7-18); Bilirubin, Total 0.6 mg/dL (0.2-1.0); CREATININE 1.04 mg/dL (0.70-1.30); Calcium 8.9 mg/dL (8.5-10.1); Chloride 103 mmol/L (98-107); Glucose 100 mg/dL (74-106); Lipase 78 U/L (73-393); Magnesium 2.2 mg/dL (1.8-2.4); Potassium 4.1 mmol/L (3.5-5.1); Sodium 140 mmol/L (136-145); Total Protein 7.4 g/dL (6.4-8.2); Troponin I < 0.05 ng/mL (<0.06)
[2020-02-08 22:06] VITALS: BP 123/67; PULSE 76; O2SAT 98
[2020-02-08 22:11] LABS: TSH 2.31 uIU/mL (0.36-3.74)
[2020-02-08] MEDS: Omnipaque 350 MG/ML 100 ML BTL IJ (22:20)
[2020-02-08] MEDS: Normal Saline - Diluent 50 ML VIAL IV (22:21)
[2020-02-08 22:31] VITALS: BP 116/59; PULSE 72; O2SAT 96
[2020-02-08 22:32] LABS: Bilirubin Negative (Negative); Blood Negative (Negative); Clarity Clear (Clear); Glucose Negative (Negative); Ketones Negative (Negative); Leukocyte Esterase Negative (Negative); Nitrite Negative (Negative); Specific Gravity 1.015 (1.005-1.025); Urobilinogen 0.2 EU/dL (Up TO 0.2)
--- NOTE | 2020-02-08 22:34 | DI.VRAD_ITS ---
PROCEDURE INFORMATION: Exam: CT Abdomen And Pelvis With Contrast Exam date and time: 02/08/2020 10:16 PM Age: 29 years old Clinical indication: Constipation and vomiting and other: Syncope; Localized; Patient HX: Lower abdominal pain, vomiting and syncope constipation with blood in stool TECHNIQUE: Imaging protocol: Computed tomography of the abdomen and pelvis with intravenous contrast. Radiation optimization: All CT scans at this facility use at least one of these dose optimization techniques: automated exposure control; mA and/or kV adjustment per patient size (includes targeted exams where dose is matched to clinical indication); or iterative reconstruction. Contrast material: OMNIPAQUE 350; Contrast volume: 100 ml; Contrast route: INTRAVENOUS (IV); COMPARISON: No relevant prior studies available. FINDINGS: Liver: Hepatic steatosis. Gallbladder and bile ducts: Normal. No calcified stones. No ductal dilation. Pancreas: Normal. No ductal dilation. Spleen: Normal. No splenomegaly. Adrenal glands: Normal. No mass. Kidneys and ureters: Simple left renal cyst, no further follow-up required. No hydronephrosis. Stomach and bowel: Unremarkable. No obstruction. No mucosal thickening. Appendix: No evidence of appendicitis. Intraperitoneal space: Unremarkable. No free air. No significant fluid collection. Vasculature: Unremarkable. No abdominal aortic aneurysm. Lymph nodes: Unremarkable. No enlarged lymph nodes. Urinary bladder: Unremarkable as visualized. Reproductive: Unremarkable as visualized. Bones/joints: Unremarkable. No acute fracture. Soft tissues: Unremarkable. IMPRESSION: No acute finding. Dictated and Authenticated by: Basilio Nova MD. Ordering:KEITH Espitia MD
[2020-02-08 22:55] VITALS: BP 116/86; PULSE 79; RESP 16; TEMP 36.6; O2SAT 98
[2020-02-08] MEDS: Hamamelis Leaf/Glycerin 100 EACH BOX PR (23:00)
== END 2020-02-08 23:00 | disposition home or self-care (01) ==
PROVIDERS: Emergency Provider Physician Assistant; PCP Internal Medicine
DX: K62.89 Other specified diseases of anus and rectum (principal); R55 Syncope and collapse; R10.30 Lower abdominal pain, unspecified; I86.1 Scrotal varices
CPT/HCPCS: 36415; 80053; 83690; 93005; 96360; 99285; 74177; 81003; 83735; 84443; 84484; 85025; 93010; 99284; J3490